=== PATIENT | female | born 1970 | race Caucasian/White ===

== ENCOUNTER 2017-11-23 21:08 | Emergency (ER) | payer OTHER, MEDICARE | END 2017-11-23 22:08 | disposition home or self-care (01) | LOC: M ED 21:08 | DX: F41.1 Generalized anxiety disorder (principal); F43.10 Post-traumatic stress disorder, unspecified; Z88.8 Allergy status to other drugs, medicaments and biological substances | CPT/HCPCS: 99284 ==